=== PATIENT | male | born 1980 | race Caucasian/White ===

== ENCOUNTER 2017-08-04 19:33 | Emergency (ER) | payer OTHER ==
[2017-08-04 19:40] VITALS: BP 152/81
[2017-08-04] MEDS ORDERED: PROPARACAINE 0.5% OPHTH DROPS 15 ML EACHEYE STA (19:42)
--- NOTE | 2017-08-04 19:56 | ED Physician Documentation ---
PD HPI OPHTHO - Stated complaint Stated Complaint: LT EYE FOREIGN OBJECT - Chief complaint Chief Complaint: Heent - History obtained from History obtained from: Patient, Family - History of Present Illness Timing - onset: Today Timing - duration: Hours (4) Timing - details: Abrupt onset Pain level max: 5 Pain level now: 3 Location: Left Quality / character: Burning, Aching Associated symptoms: Redness, Tearing, FB sensation Contributing factors: Wears contacts. No: Exposed to conjunctivitis, Recent URI , FB, UV light (welding etc), Chemical exposure, acid, Chemical exposure, base, Blunt trauma, Penetrating trauma Similar symptoms before: Has not had sx before Recently seen: Not recently seen Review of Systems Constitutional: denies: Fever, Chills Eyes: denies: Decreased vision, Photophobia Skin: denies: Rash PD PAST MEDICAL HISTORY - Past Medical History Past Medical History: Yes Cardiovascular: Hypertension - Past Surgical History Past Surgical History: No - Present Medications Home Medications: Ambulatory Orders Medication Instructions Recorded Confirmed Losartan [Cozaar] 100 mg PO DAILY 08/04/17 08/04/17 Ofloxacin 0.3% Ophth Drops 1 drops OPTH Q4H #1 btl 08/04/17 [Ocuflox 0.3% Ophth Drops] - Allergies Allergies/Adverse Reactions: Allergies Allergy/AdvReac Type Severity Reaction Status Date / Time No Known Drug Allergies Allergy Verified 08/04/17 19:40 - Social History Does the pt smoke?: No Smoking Status: Never smoker Does the pt drink ETOH?: Yes ETOH Use: Beer Does the pt have substance abuse?: No - Immunizations Immunizations are current?: Yes - POLST Patient has POLST: No PD ED PE NORMAL - Vitals Vital signs reviewed: Yes - General General: Alert and oriented X 3, No acute distress - HEENT HEENT: Moist mucous membranes - Neck Neck: Supple, no meningeal sign PD ED PE EXPANDED - Eyes Eyes: PERRL, Normal eyelids, No eyelid FB (everted), Injected conj/sclera (OS), Fluorescein uptake (OS, mid cornea, punctate uptake. no ulcer). No: Eyelid injury, Eyelid swelling Results - Vitals Vitals: Vital Signs - 24 hr 08/04/17 19:36 Temperature 36.5 C Heart Rate 82 Respiratory 16 Rate Blood Pressure 152/81 H O2 Saturation 98 Oxygen O2 Source Room air PD MEDICAL DECISION MAKING - ED course Complexity details: considered differential, d/w patient ED course: Patient is a 37-year-old male who wears contact lenses who has a corneal abrasion of left eye. Will place on ophthalmic antibiotics and have him keep the contacts out of his left eye. Will have him follow-up with his doctor for repeat evaluation in a few days to ensure he is healing properly. No foreign body visible on exam. Patient counseled regarding signs and symptoms for which I believe and urgent re-evaluation would be necessary. Patient with good understanding of and agreement to plan and is comfortable going home at this time This document was made in part using voice recognition software. While efforts are made to proofread this document, sound alike and grammatical errors may occur. - Sepsis Event Vital Signs: Vital Signs - 24 hr 08/04/17 19:36 Temperature 36.5 C Heart Rate 82 Respiratory 16 Rate Blood Pressure 152/81 H O2 Saturation 98 Oxygen O2 Source Room air Departure - Departure Disposition: 01 Home, Self Care Clinical Impression: Corneal abrasion, left Qualifiers: Encounter type: initial encounter Qualified Code(s): S05.02XA - Injury of conjunctiva and corneal abrasion without foreign body, left eye, initial encounter Condition: Good Instructions: ED Eye Injury Corneal Abrasion Follow-Up: your,doctor in 3 days for recheck [Other] Prescriptions: Ofloxacin 0.3% Ophth Drops [Ocuflox 0.3% Ophth Drops] 1 drops OPTH Q4H #1 btl Comments: Do not wear your left contact lens until cleared by your doctor. Use the antibiotic drops as directed. You can use motrin or tylenol as needed for pain. Discharge Date/Time: 08/04/17 20:02
== END 2017-08-04 20:02 | disposition home or self-care (01) ==
LOC: ED 19:33
DX: S05.02XA Injury of conjunctiva and corneal abrasion without foreign body, left eye, initial encounter (principal); I10 Essential (primary) hypertension; X58.XXXA Exposure to other specified factors, initial encounter
CPT/HCPCS: 99283; J3490